=== PATIENT | female | born 1940 | race Caucasian/White ===

== ENCOUNTER 2020-09-02 10:25 | Emergency (ER) | payer MEDICARE ==
[~2020-09-02] VITALS: Ht 160 cm; Wt 75.0 kg
[2020-09-02] MEDS ORDERED: FAMOTIDINE 20 MG/2 ML VIAL IVP ONE (11:45)
[2020-09-02] MEDS ORDERED: ONDANSETRON PF 4 MG/2 ML VIAL. IVP ONE (11:45)
[2020-09-02] MEDS ORDERED: MORPHINE SULFATE 10 MG/ML VIAL. IV ONE ×3 (11:45→16:00)
--- NOTE | 2020-09-02 12:05 | RAD ---
XR CHEST 1V Clinical History: Reason: abd pain 16 / Spl. Instructions: / History: Technique: AP view of the chest was obtained at 09/02/2020 11:56 AM. Comparison: None. Findings: The heart is top normal limits in size. Aorta slightly tortuous. The pulmonary vessels appear normal. Reticular opacities of lungs are likely chronic. Impression: No evidence of an acute cardiopulmonary process. Electronically signed by: Myron Alonzo III, MD (09/02/2020 12:03 PM) [facility]
[2020-09-02 12:44] LABS: BILIRUBIN,URINE NEGATIVE (NEG); CLARITY,URINE CLEAR; COLOR,URINE YELLOW; NITRITE,URINE NEGATIVE (NEG); PROTEIN,URINE NEGATIVE (NEG-TRACE)
[2020-09-02 12:50] LABS: BASO # 0.1 x10^3/uL (0.0-0.2); BASO % 1 % (0-3); EOS # 0.1 x10^3/uL (0.0-0.7); EOS % 1 % (0-3); HEMATOCRIT 39.2 % (36.0-47.0); HEMOGLOBIN 13.4 g/dL (12.0-15.5); LYMPH # 0.8 x10^3/uL (1.0-4.8); LYMPH % 12 % (24-48); MEAN CORPUSCULAR HEMOGLOBIN 33 pg (25-35); MEAN CORPUSCULAR HGB CONC 34 g/dL (31-37); MEAN CORPUSCULAR VOLUME 96 fL (79-100); MONO # 0.6 x10^3/uL (0.0-1.1); MONO % 8 % (0-9); NEUT # 5.3 x10^3/uL (1.8-7.7); NEUT % 78 % (31-73); PLATELET COUNT 201 x10^3/uL (140-400); RED BLOOD COUNT 4.07 x10^6/uL (3.50-5.40); RED CELL DISTRIBUTION WIDTH 13.6 % (11.5-14.5); WHITE BLOOD COUNT 6.7 x10^3/uL (4.0-11.0)
[2020-09-02 12:54] LABS: BACTERIA,URINE FEW /HPF (0-FEW)
[2020-09-02 12:59] LABS: CALCIUM 9.5 mg/dL (8.5-10.1); CREATININE 0.8 mg/dL (0.6-1.0); GFR 68.8; POTASSIUM 3.9 mmol/L (3.5-5.1)
[2020-09-02 13:04] LABS: ALBUMIN 3.7 g/dL (3.4-5.0); ALBUMIN/GLOBULIN RATIO 1.1 (1.0-1.7); MAGNESIUM 1.9 mg/dL (1.8-2.4); TOTAL BILIRUBIN 0.4 mg/dL (0.2-1.0); TOTAL PROTEIN 7.1 g/dL (6.4-8.2)
[2020-09-02] MEDS ORDERED: IOHEXOL 300 MG/ML 100ML VIAL. IV ONE (13:15)
[2020-09-02] MEDS ORDERED: CONTRAST GIVEN. MC PRN (13:15)
--- NOTE | 2020-09-02 13:29 | PHYS DOC ---
General Adult EDM: Chief Complaint: ABDOMINAL PAIN HPI: HPI: Patient is a 80 year old female who presents to the ED today complaining of epigastric abdominal pain, rated as mild and intermittent, indigestion, symptoms began this morning. Patient is also complaining of chronic low back pain, patient rates the pain is mild intermittent worse on activities. Patient denies any injuries. Denies any pain radiating to bilateral lower extremities. Denies any loss of bowel/bladder function. She states her last bowel movement was today and normal. (KYLE BECK COURT ASSISTANT) Review of Systems: Review of Systems: Constitutional: Denies fever or chills. [] Eyes: Denies change in visual acuity. [] HENT: Denies nasal congestion or sore throat. [] Respiratory: Denies cough or shortness of breath. [] Cardiovascular: Denies chest pain or edema. [] GI: Reports abdominal pain, abdominal bloating, denies nausea, vomiting, bloody stools or diarrhea. [] : Denies dysuria. [] Musculoskeletal: Reports chronic low back pain Integument: Denies rash. [] Neurologic: Denies headache, focal weakness or sensory changes. [] Psychiatric: Denies depression or anxiety. [] (KYLE BECK COURT ASSISTANT) Heart Score: C/O Chest Pain: N/A Risk Factors: Risk Factors: DM, Current or recent (<one month) smoker, HTN, HLP, family history of CAD, obesity. Risk Scores: Score 0 - 3: 2.5% MACE over next 6 weeks - Discharge Home Score 4 - 6: 20.3% MACE over next 6 weeks - Admit for Clinical Observation Score 7 - 10: 72.7% MACE over next 6 weeks - Early Invasive Strategies (KYLE BECK COURT ASSISTANT) Current Medications: Current Medications Medications (Trade) Dose Ordered Sig/Amina Start Time Stop Time Status Last Admin Dose Admin Famotidine (Pepcid Vial) 20 mg 1X ONCE 09/02/20 11:45 09/02/20 11:46 DC 09/02/20 13:01 20 MG Info (CONTRAST GIVEN -- Rx MONITORING) 1 each PRN DAILY PRN 09/02/20 13:15 09/04/20 13:14 Iohexol (Omnipaque 300 Mg/ml) 75 ml 1X ONCE 09/02/20 13:15 09/02/20 13:16 DC 09/02/20 13:22 75 ML Morphine Sulfate (Morphine Sulfate) 5 mg 1X ONCE 09/02/20 11:45 09/02/20 11:46 DC 09/02/20 13:01 5 MG Ondansetron HCl (Zofran) 4 mg 1X ONCE 09/02/20 11:45 09/02/20 11:46 DC 09/02/20 13:00 4 MG (KYLE BECK COURT ASSISTANT) Allergies: Allergies: Allergies Coded Allergies Type Severity Reaction Last Updated Verified No Known Drug Allergies 09/02/20 No (KYLE BECK M COURT ASSISTANT) Physical Exam: PE: Constitutional: Well developed, well nourished, no acute distress, non-toxic appearance. [] HENT: Normocephalic, atraumatic, bilateral external ears normal, oropharynx moist, no oral exudates, nose normal. [] Eyes: PERRLA, EOMI, conjunctiva normal, no discharge. [] Neck: Normal range of motion, no tenderness, supple, no stridor. [] Cardiovascular:Heart rate regular rhythm, no murmur [] Lungs & Thorax: Bilateral breath sounds clear to auscultation [] Abdomen: Bowel sounds normal, soft, no tenderness, no masses, no pulsatile masses. [] Skin: Warm, dry, no erythema, no rash. [] Back: No tenderness, no CVA tenderness. [] Extremities: No tenderness, no cyanosis, no clubbing, ROM intact, no edema. [] Neurologic: Alert and oriented X 3, normal motor function, normal sensory function, no focal deficits noted. [] Psychologic: Affect normal, judgement normal, mood normal. [] (KYLE BECK M COURT ASSISTANT) Current Patient Data: Labs: Laboratory Tests Test 09/02/20 10:29 09/02/20 12:40 Urine Collection Type Unknown Urine Color Yellow Urine Clarity Clear Urine pH 7.0 (<5.0-8.0) Urine Specific Cisco 1.020 (1.000-1.030) Urine Protein Negative mg/dL (NEG-TRACE) Urine Glucose (UA) Negative mg/dL (NEG) Urine Ketones (Stick) Negative mg/dL (NEG) Urine Blood Negative (NEG) Urine Nitrite Negative (NEG) Urine Bilirubin Negative (NEG) Urine Urobilinogen Dipstick 1.0 mg/dL (0.2 mg/dL) Urine Leukocyte Esterase Large (NEG) Urine RBC 1-2 /HPF (0-2) Urine WBC 11-20 /HPF (0-4) Urine Squamous Epithelial Cells Mod /LPF Urine Bacteria Few /HPF (0-FEW) Urine Mucus Mod /LPF White Blood Count 6.7 x10^3/uL (4.0-11.0) Red Blood Count 4.07 x10^6/uL (3.50-5.40) Hemoglobin 13.4 g/dL (12.0-15.5) Hematocrit 39.2 % (36.0-47.0) Mean Corpuscular Volume 96 fL (79-100) Mean Corpuscular Hemoglobin 33 pg (25-35) Mean Corpuscular Hemoglobin Concent 34 g/dL (31-37) Red Cell Distribution Width 13.6 % (11.5-14.5) Platelet Count 201 x10^3/uL (140-400) Neutrophils (%) (Auto) 78 % (31-73) H Lymphocytes (%) (Auto) 12 % (24-48) L Monocytes (%) (Auto) 8 % (0-9) Eosinophils (%) (Auto) 1 % (0-3) Basophils (%) (Auto) 1 % (0-3) Neutrophils # (Auto) 5.3 x10^3/uL (1.8-7.7) Lymphocytes # (Auto) 0.8 x10^3/uL (1.0-4.8) L Monocytes # (Auto) 0.6 x10^3/uL (0.0-1.1) Eosinophils # (Auto) 0.1 x10^3/uL (0.0-0.7) Basophils # (Auto) 0.1 x10^3/uL (0.0-0.2) Sodium Level 141 mmol/L (136-145) Potassium Level 3.9 mmol/L (3.5-5.1) Chloride Level 103 mmol/L (98-107) Carbon Dioxide Level 27 mmol/L (21-32) Anion Gap 11 (6-14) Blood Urea Nitrogen 19 mg/dL (7-20) Creatinine 0.8 mg/dL (0.6-1.0) Estimated GFR (Cockcroft-Gault) 68.8 BUN/Creatinine Ratio 24 (6-20) H Glucose Level 88 mg/dL (70-99) Calcium Level 9.5 mg/dL (8.5-10.1) Magnesium Level 1.9 mg/dL (1.8-2.4) Total Bilirubin 0.4 mg/dL (0.2-1.0) Aspartate Amino Transferase (AST) 23 U/L (15-37) Alanine Aminotransferase (ALT) 19 U/L (14-59) Alkaline Phosphatase 50 U/L (46-116) Troponin I Quantitative < 0.017 ng/mL (0.000-0.055) YJ-Awu-D-Type Natriuretic Peptide 523 pg/mL (0-449) H Total Protein 7.1 g/dL (6.4-8.2) Albumin 3.7 g/dL (3.4-5.0) Albumin/Globulin Ratio 1.1 (1.0-1.7) Laboratory Tests 09/02/20 12:40 Laboratory Tests 09/02/20 12:40 (KYLE BECK APRN) EKG: EK interpreted by Dr. Oneil sinus rhythm heart rate 74 no STEMI [] (KYLE BECK APRN) Radiology/Procedures: Radiology/Procedures: []PROCEDURE: PORTABLE CHEST 1V XR CHEST 1V Clinical History: Reason: abd pain 16 / Spl. Instructions: / History: Technique: AP view of the chest was obtained at 09/02/2020 11:56 AM. Comparison: None. Findings: The heart is top normal limits in size. Aorta slightly tortuous. The pulmonary vessels appear normal. Reticular opacities of lungs are likely chronic. Impression: No evidence of an acute cardiopulmonary process. Electronically signed by: Joshua Bai III, MD (09/02/2020 12:03 PM) [facility] DICTATED and SIGNED BY: JOSHUA BAI III, MD DATE: 09/02/20 [id number] PROCEDURE: CT ABD PELV W/ IV CONTRST ONLY CT SCAN OF THE ABDOMEN AND PELVIS WITH IV CONTRAST. History: Reason: abd pain, bloating took peptobismal / Spl. Instructions: omni 300 75ml / History: Comparison:None. Procedure: Contiguous axial images of the abdomen and pelvis were performed after the administration of 75 cc of Omni 300 IV contrast. Oral contrast: No. Findings: Liver: Unremarkable Spleen: Unremarkable Pancreas: Unremarkable Adrenal Glands: Unremarkable Kidneys: Small cyst the upper pole right kidney. There is prominence the renal pelvises bilaterally. The colon is collapsed limiting its evaluation. The appendix is not well seen but appears normal. The gallbladder appears normal. There is no mass or lymphadenopathy. There is no free air. There is no free fluid. The urinary bladder appears normal. Impression: 1. 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 2. No acute findings. End impression PQRS Compliance Statement: One or more of the following individualized dose reduction techniques were utilized for this examination: 1. Automated exposure control 2. Adjustment of the mA and/or kV according to patient size 3. Use of iterative reconstruction technique Electronically signed by: Joshua Bai III, MD (09/02/2020 2:43 PM) [facility] DICTATED and SIGNED BY: JOSHUA BAI III, MD DATE: 09/02/20 [id number] (KYLE BECK APRN) Course & Med Decision Making: Course & Med Decision Making Pertinent Labs and Imaging studies reviewed. (See chart for details) This is a 80-year-old female patient presenting to the ED today complaining of abdominal pain, indigestion, symptoms began today. Also complaining of chronic low back pain EKG is negative, CBC, CMP troponin-no acute findings. Chest x-ray is negative for any acute findings. 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 UA positive for UTI. Discharged on cephalexin. Discharged with famotidine as well. Follow-up with PCP and GI. (KYLE BECK APRN) Dragon Disclaimer: Dragon Disclaimer: This electronic medical record was generated, in whole or in part, using a voice recognition dictation system. (KYLE BECK APRN) Departure Departure Impression: Primary Impression: Urinary tract infection Qualified Codes: N39.0 - Urinary tract infection, site not specified Additional Impressions: Persistent indigestion Chronic low back pain Qualified Codes: M54.5 - Low back pain; G89.29 - Other chronic pain Disposition: 01 DC HOME SELF CARE/HOMELESS Condition: STABLE Referrals: RICKI GANNON MD (PCP) follow up in 1-2 weeks JENNA SALMERON MD follow up in 1-2 weeks Patient Instructions: Diet for Gastroesophageal Reflux Disease, Adult, [id number], Gastroesophageal Reflux Disease, Adult, Urinary Tract Infection Additional Instructions: Please take the prescribed antibiotics until completed. Follow-up with your primary care doctor in 1 to 2 weeks. Also take the prescribed Pepcid as ordered. Scripts Famotidine (FAMOTIDINE) 20 Mg Tablet 20 MG PO DAILY for 7 Days, #7 TAB Prov: KYLE BECK APRN 09/02/20 Cephalexin (CEPHALEXIN) 500 Mg Tablet 1 TAB PO BID, #14 TAB Prov: KYLE BECK APRN 09/02/20 Attending Signature Attending Signature I have reviewed the PA/BREAKFAST BAR ATTENDANT's note and plan of care. I was available for consultation as needed during the patient's visit in the emergency department. I agree with the clinical impression, plan, and disposition. (JACY ONEIL DO) KYLE BECK APRN Sep 02, 2020 13:29 JACY ONEIL DO Sep 03, 2020 15:27
--- NOTE | 2020-09-02 14:45 | RAD ---
CT SCAN OF THE ABDOMEN AND PELVIS WITH IV CONTRAST. History: Reason: abd pain, bloating took peptobismal / Spl. Instructions: omni 300 75ml / History: Comparison:None. Procedure: Contiguous axial images of the abdomen and pelvis were performed after the administration of 75 cc o f Omni 300 IV contrast. Oral contrast: No. Findings: Liver: Unremarkable Spleen: Unremarkable Pancreas: Unremarkable Adrenal Glands: Unremarkable Kidneys: Small cyst the upper pole right kidney. There is prominence the renal pelvises bilaterally. The colon is collapsed limiting its evaluation. The appendix is not well seen but appears normal. The gallbladder appears normal. There is no mass or lymphadenopathy. There is no free air. There is no free fluid. The urinary bladder appears normal. Impression: 1. 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 2. No acute findings. End impression PQRS Compliance Statement: One or more of the following individualized dose reduction techniques were utilized for this examinat ion: 1. Automated exposure control 2. Adjustment of the mA and/or kV according to patient size 3. Use of iterative reconstruction technique Electronically signed by: Myron Alonzo III, MD (09/02/2020 2:43 PM) [facility]
[2020-09-02] MEDS ORDERED: FAMO20TA5 PO (15:28)
[2020-09-02] MEDS ORDERED: CEPH500T PO (15:28)
[2020-09-02 16:00] VITALS: BP 144/78
--- NOTE | 2020-09-02 19:40 | EKG ---
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
== END 2020-09-02 16:20 | disposition home or self-care (01) ==
LOC: ER 10:25
DX: N39.0 Urinary tract infection, site not specified (principal); G89.29 Other chronic pain; M54.5 Low back pain; R09.81 Nasal congestion; R10.13 Epigastric pain
CPT/HCPCS: 36415; 71045; 74177; 80053; 81001; 83735; 83880; 84484; 85025; 87086; 93005; 96374; 96375; 96376; 99285; J2270; J2405; J3490; Q9967